=== PATIENT | female | born 1965 | race Caucasian/White ===

== ENCOUNTER 2017-02-27 11:57 | Inpatient (IN) | payer OTHER, MEDICARE ==
[~2017-02-27] VITALS: Ht 162.6 cm; Wt 97.1 kg
[~2017-02-27 11:57] MED LIST: ABILIFY2 MG PO; ABILIFY20 MG PO; ABILIFY5 MG PO; ADULT LOW DOSE81 MG PO; ADVAIR 250/5028 PUFF IN; ADVAIR DISK28 PUFFS IN; ALPRAZOLAM0.25 MG PO; AMITRIPTYLINE 225 MG OR; AMITRIPTYLINE 225 MG PO; ASPIRIN 325MG325 MG PO; ASPIRIN EC325 M1 PO; ASPIRIN EC325 MG PO; ASPIRIN325 M1 PO; AUGMENTIN1 TA2 PO; AVPAK AZITHROM250 MG PO; AZITHROMYCIN250 M1 PO; BACTRIM DS 8001 TAB PO; BIAXIN 500MG T500 MG PO; BUSPAR 10MG TAB10 MG PO; BUSPIRONE HCL15 MG PO; CARDIZEM CD120 MG PO; CARDIZEM SR120 MG PO; CEFDINIR 300MG300 MG PO; CENTRUM1 TA1 PO; CENTRUM1 TAB PO; CIPRO500 MG PO; CLINDAMYCIN150 MG PO; CLINDAMYCIN300 MG PO; CLOTRIMAZOLE 1%15 GM TP; DIAZEPAM10 MG PO; DIAZEPAM5 M1 PO; DILTIAZEM ER120 MG PO; DILTIAZEM120 MG PO; DOXEPIN PO; DOXYCYCLINE100 M1 PO; DUONEB 3 MG/3 ML3 ML IH; EFFEXOR XR150 MG PO; EFFEXOR XR75 MG PO; FLUCONAZOLE200 MG PO; GABAPENTIN 600600 MG PO; HUMALOG KW100 UNIT/1 SQ; HUMALOG100 U/M1 SC; HYCODAN 1.5 MG-1 TAB PO; HYCODAN 5MG. TAB5 MG PO; HYDROCODONE BI473 ML PO; HYDROCODONE PO; HYDROCODONE1 TABLE1 PO; INDERAL 20MG. T20 MG PO; INDERAL OR; INSULIN GL100 UNITS/ SC; INSULIN HUMA100 U/ML SC; IPRATROPIUM BROM3 M1 IH; KEFLEX 500MG.500 MG PO; LANTUS INS100 UNITS/ SC; LASIX40 MG PO; LEVAQUIN500 MG PO; LEVOFLOXACIN 5500 MG PO; LIDODERM 5% PA1 EACH TD; LOMOTIL 2.5MG.2.5 MG PO; LORTAB 5/500 501 TAB PO; LORTAB 500 MG-71 TAB PO; LYRICA 100 MG100 MG PO; MACROBID 100MG100 MG PO; MECLIZINE 25MG25 MG PO; MEDROL 4MG. DOSE4 MG PO; METFORMIN500 MG PO; METOCLOPRAMIDE H5 MG PO; METOCLOPRAMIDE5 MG PO; MIRTAZAPINE30 MG PO; MOBIC7.5 MG PO; NAPROSYN 500MG500 MG PO; NASONEX0.05 MG/AC NS; NEURONTIN600 MG PO; NEURONTIN800 MG PO; NORCO 325 MG-101 TAB PO; NOVOLOG100 U/ML SC; NYSTATIN 1100000 UNI PO; NYSTATIN SUSP; NYSTATIN TO15 GM/BOT EX; NYSTATIN100000 U/M PO; Novolog100 U/ML SC; OMNICEF 300 MG300 MG PO; PERCOCET 325 MG1 TA4 PO; PHENERGAN 25MG.25 M1 PO; POTASSIUM CHLO20 ME2 PO; PRAVASTATIN 20M20 MG PO; PREDNICOT20 MG PO; PREDNISONE 10MG10 MG PO; PREDNISONE 20MG20 MG PO; PREDNISONE20 MG PO; PRILOSEC40 MG PO; PROPRANOLOL HCL20 MG PO; PROVENTIL0.09 MG/A1 IH; PYRIDIUM 200MG200 MG PO; RESTORIL15 MG PO; SALMETEROL-F28 PUFF1 IN; SAVELLA100 MG PO; SEPTRA DS 800 M1 TAB PO; SEROQUEL XR400 MG; SEROQUEL XR400 MG PO; SIMVASTATIN10 MG PO; SKELAXIN 800MG800 MG PO; SKELAXIN800 MG PO; SPIRIVA HA1 PUFF/INH IH; SYMBICORT1 AE1 IH; TEMAZEPAM30 MG PO; TESSALON PERLE100 MG PO; TRAZODONE100 MG PO; TRICOR160 MG PO; Triglide160 MG PO; ULTRACET 325 MG1 TAB PO; VALIUM10 MG PO; VALIUM5 MG OR; VALIUM5 MG PO; VIBRA-TABS100 MG PO; VIBRAMYCIN HYC100 MG PO; VICODIN 5/500 T1 TAB PO; VICODIN 7.5/501 EACH PO; VISTARIL25 MG PO; VISTARIL50 MG PO; ZANAFLEX4 MG PO; ZITHROMAX Z PA250 MG PO; ZITHROMAX Z-PA250 M1 PO; ZOFRAN ODT8 MG PO
--- OUTSIDE RECORDS SUMMARY | 2017-02-27 12:03 | External Medical Summary Rpt ---
Author Author , Organization [employer] Address Unknown Phone Unavailable Care Team Providers Care Embosser Apprentice Name Role Phone [facility] Unavailable Unavailable [facility], [facility] Sanjeev Alonso MD, Unavailable Unavailable Sanjeev Alonso MD Purpose Continuity of Care Document - 11-28-2012 through 2016 Problems Code Diagnosis DOS Provider Status [id number] Headache [facility] [id number] Diabetes [place] mellitus [facility] type 2 [facility] 482.9 Bacterial [place] pneumonia [facility] 496 Acute [facility] chronic obstructive airways disease 518.89 Chronic [place] lung [facility] Allergies, Adverse Reactions, Alerts Type Drug Allergy Propensity to adverse reactions to drug Adverse Reaction to Substance Substance Reaction Severity Meperidine NA-HALLUCINATIONS Unknown Butorphanol NA-HALLUCINATIONS Unknown Lisinopril Unknown Mild Nicotine I-RASH Intermediate Clopidogrel I-HIVES Intermediate Ibuprofen NA-NAUSEA/VOMITING Unknown Medications Na ND Rx Da Fi Fi Am Da Di Ph RX Ph St me C No te ll ll ou ys ag ar # ys at rm s nt no ma ic us Or Da si cy ia de te s n re d IP 00 10 0 No RA 48 -2 T- 70 1- Lo AL 20 20 ng BU 10 13 er T 1 0. Ac 5- ti 3( ve 2. 5) MG /3 ML VA 00 10 0 No ED 05 -2 NI 40 1- Lo SO 01 20 ng NE 82 13 er 0 20 Ac ti MG ve TA BL ET TU 61 10 0 No SS 57 -2 IG 00 1- Lo ON 08 20 ng 10 13 er 5- 1 1. Ac 5 ti MG ve TA BL ET BE 57 10 0 No NZ 66 -2 ON 40 1- Lo AT 13 20 ng AT 38 13 er E 8 10 Ac 0 ti MG ve CA PS UL E Sa 63 10 0 No li 80 -0 ne 70 4- Lo 10 20 ng Fl 07 13 er us 5 h Ac 10 ti ML ve Sy ri ng e KE 00 10 0 No TO 40 -0 RO 93 4- Lo LA 79 20 ng C 50 13 er 30 1 Ac MG ti /M ve L AL CE 00 10 0 No FT 40 -0 RI 97 4- Lo AX 33 20 ng ON 30 13 er E 4 1 Ac GM ti ve AL SO 00 10 0 No DI 40 -0 UM 97 4- Lo 10 20 ng CH 16 13 er LO 6 RI Ac DE ti ve 0. 9% SO LN Sa 63 10 0 No li 80 -0 ne 70 4- Lo 10 20 ng Fl 07 13 er us 5 h Ac 10 ti ML ve Sy ri ng e HY [address] 07 -2 OC 90 3- Lo OD 78 20 ng ON 09 13 er E/ 9H AP Ac AP ti ve 5/ 50 0M G TA KE HY [address] 07 -2 OC 90 3- Lo OD 78 20 ng ON 09 13 er E/ 9H AP Ac AP ti ve 5/ 50 0M G TA KE HY [address] 40 -2 OC 60 1- Lo OD 36 20 ng ON 56 13 er -A 2 CE Ac TA ti MD ve NO PH EN 5- 32 5 IP 00 02 0 No RA 48 -2 T- 70 0- Lo AL 20 20 ng BU 10 13 er T 1 0. Ac 5- ti 3( ve 2. 5) MG /3 ML ME 49 02 0 No CL 88 -2 IZ 40 0- Lo IN 03 20 ng E 50 13 er 25 1 Ac MG ti ve TA BL ET AZ 59 02 1 No IT 76 -1 HR 23 5- Lo OM 06 20 ng YC 00 13 er IN 3 Ac 25 ti 0 ve MG TA BL ET IP 00 02 1 No RA 48 -1 T- 70 5- Lo AL 20 20 ng BU 10 13 er T 1 0. Ac 5- ti 3( ve 2. 5) MG /3 ML Me 51 02 2 No to 07 -1 cl 90 4- Lo op 28 20 ng ra 32 13 er mi 0 de Ac ti 10 ve MG Ta bl et Ga 68 02 2 No ba 08 -1 pe 40 4- Lo nt 59 20 ng in 56 13 er 5 40 Ac 0M ti G ve Ca ps ul e Me 00 02 2 No th 00 -1 yl 90 4- Lo pr 19 20 ng ed 00 13 er ni 9 so Ac lo ti ne ve So d [place] cc in a AM 51 02 2 No IT 07 -1 RI 90 4- Lo PT 13 20 ng YL 32 13 er IN 0 E Ac HC ti L ve 50 MG TA B AZ 00 02 1 No IT 40 -1 HR 90 3- Lo OM 14 20 ng YC 41 13 er IN 1 Ac I. ti V. ve 50 0 MG AL SO 00 02 1 No DI 40 -1 UM 97 3- Lo 10 20 ng CH 10 13 er LO 2 RI Ac DE ti ve 0. 9% SO LN CE 00 02 3 No FT 40 -1 RI 97 3- Lo AX 33 20 ng ON 30 13 er E 4 1 Ac GM ti ve AL So 00 02 3 No d 07 -1 Ch 47 3- Lo lo 10 20 ng ri 11 13 er de 3 Ac 0. ti 9% ve 50 ML Ad v IP 00 02 3 No RA 48 -1 T- 70 3- Lo AL 20 20 ng BU 10 13 er T 1 0. Ac 5- ti 3( ve 2. 5) MG /3 ML 00 02 3 No AI 12 -1 FE 10 3- Lo NE 63 20 ng SI 81 13 er N 0 DM Ac ti SY ve RU P DI 51 02 3 No AZ 07 -1 EP 90 3- Lo AM 28 20 ng 62 13 er 10 0 Ac MG ti ve TA BL ET MA 00 02 3 No PA 90 -1 P 41 3- Lo 32 98 20 ng 5 26 13 er MG 1 Ac TA ti BL ve ET As 51 02 3 No pi 07 -1 ri 90 3- Lo n 00 20 ng 32 52 13 er 5M 0 G Ac Ta ti bl ve et LO 00 02 3 No VE 07 -1 NO 50 3- Lo X 62 20 ng 40 04 13 er 1 MG Ac /0 ti .4 ve ML SY RI NG E SK 60 02 3 No EL 79 -1 AX 30 3- Lo IN 13 20 ng 60 13 er 80 1 0 Ac MG ti ve TA BL ET AD 00 02 3 No VA 17 -1 IR 30 3- Lo 69 20 ng 50 70 13 er 0- 4 50 Ac ti DI ve SK US EF 00 02 3 No FE 00 -1 XO 80 3- Lo R 83 20 ng XR 30 13 er 3 75 Ac ti MG ve CA PS UL E Di 62 02 3 No lt 58 -1 ia 40 3- Lo ze 97 20 ng m 40 13 er ER 1 Ac 12 ti 0M ve G Ca ps ul e HY [address] 40 -1 OC 60 3- Lo OD 36 20 ng ON 56 13 er -A 2 CE Ac TA ti MD ve NO PH EN 5- 32 5 Me 00 02 1 No th 00 -1 yl 90 3- Lo pr 19 20 ng ed 00 13 er ni 9 so Ac lo ti ne ve So d [place] cc in a Sa 63 02 3 No li 80 -1 ne 70 3- Lo 10 20 ng Fl 07 13 er us 5 h Ac 10 ti ML ve Sy ri ng e FS 02 3 No -1 BL 3- Lo OO 20 ng D 13 er [place] GA Ac R ti ve HU 00 02 3 No MA 00 -1 LO 27 3- Lo G 51 20 ng 10 01 13 er 0 7 UN Ac IT ti S/ ve ML AL In 00 02 3 No e[place] 08 -1 li 82 3- Lo n 22 20 ng Gl 06 13 er ar 0 gi Ac ne ti ve 10 0 Un it s/ Ml Qu 00 02 3 No et 31 -1 ia 00 3- Lo pi 27 20 ng ne 13 13 er 9 10 Ac 0M ti G ve Ta bl et TE 51 02 3 No MA 07 -1 ZE 90 3- Lo PA 41 20 ng M 92 13 er 30 0 Ac MG ti ve CA PS UL E VA 51 02 3 No AV 07 -1 90 3- Lo TA 45 20 ng TI 82 13 er N 0 SO Ac DI ti UM ve 20 MG TA B AM 51 02 1 No IT 07 -1 RI 90 3- Lo PT 10 20 ng YL 72 13 er IN 0 E Ac HC ti L ve 25 MG TA B Vital Signs 08-05-2013 16:28 Name Value Interpretat Reference Comment ion Range BP 95 mm[Hg] Diastolic BP Systolic 204 mm[Hg] Heart 127 /min Rate/Pulse O2% 97 % Respiratory 20 /min Rate 08-05-2013 16:22 Name Value Interpretat Reference Comment ion Range Body 97.9 [degF] Temperature 08-05-2013 14:03 Name Value Interpretat Reference Comment ion Range BP 64 mm[Hg] Diastolic BP Systolic 108 mm[Hg] Heart 131 /min Rate/Pulse O2% 96 % Respiratory 20 /min Rate 07-19-2013 21:59 Name Value Interpretat Reference Comment ion Range Body 98.6 [degF] Temperature BP 72 mm[Hg] Diastolic BP Systolic 155 mm[Hg] Heart 132 /min Rate/Pulse O2% 95 % Respiratory 18 /min Rate 07-19-2013 21:39 Name Value Interpretat Reference Comment ion Range Body 98.6 [degF] Temperature 07-19-2013 21:16 Name Value Interpretat Reference Comment ion Range BP 85 mm[Hg] Diastolic BP Systolic 176 mm[Hg] Heart 135 /min Rate/Pulse O2% 98 % Respiratory 22 /min Rate 12-09-2012 00:59 Name Value Interpretat Reference Comment ion Range BP 72 mm[Hg] Diastolic BP Systolic 150 mm[Hg] Heart 102 /min Rate/Pulse O2% 91 % Respiratory 20 /min Rate 12-08-2012 03:18 Name Value Interpretat Reference Comment ion Range BP 88 mm[Hg] Diastolic BP Systolic 159 mm[Hg] Heart 105 /min Rate/Pulse O2% 92 % Respiratory 20 /min Rate 12-08-2012 01:14 Name Value Interpretat Reference Comment ion Range BP 78 mm[Hg] Diastolic BP Systolic 131 mm[Hg] Heart 112 /min Rate/Pulse O2% 95 % Respiratory 20 /min Rate 12-07-2012 00:31 Name Value Interpretat Reference Comment ion Range BP 85 mm[Hg] Diastolic BP Systolic 145 mm[Hg] Heart 118 /min Rate/Pulse O2% 94 % Respiratory 20 /min Rate 12-05-2012 15:48 Name Value Interpretat Reference Comment ion Range Body 98.3 [degF] Temperature BP 65 mm[Hg] Diastolic BP Systolic 135 mm[Hg] Heart 99 /min Rate/Pulse O2% 98 % Respiratory 20 /min Rate 12-05-2012 15:08 Name Value Interpretat Reference Comment ion Range BP 78 mm[Hg] Diastolic BP Systolic 132 mm[Hg] Heart 111 /min Rate/Pulse Respiratory 24 /min Rate 12-05-2012 14:03 Name Value Interpretat Reference Comment ion Range O2% 91 % 12-01-2012 08:48 Name Value Interpretat Reference Comment ion Range Body 98.0 [degF] Temperature BP 75 mm[Hg] Diastolic BP Systolic 137 mm[Hg] Heart 110 /min Rate/Pulse Respiratory 20 /min Rate 12-01-2012 08:00 Name Value Interpretat Reference Comment ion Range O2% 90 % 11-28-2012 14:33 Name Value Interpretat Reference Comment ion Range O2% 90 % 11-28-2012 09:00 Name Value Interpretat Reference Comment ion Range Body 97.8 [degF] Temperature BP 82 mm[Hg] Diastolic BP Systolic 125 mm[Hg] Heart 122 /min Rate/Pulse Height 160.02 cm Respiratory 24 /min Rate Weight 201 [lb_av] Measured Weight 91.173 kg Measured Results Labs Lab Lab Date Result Refere Interp Status Commen Order Detail nces retati t Range on BASIC METABOLIC PANEL (08-05-2013 14:25) Glucose 167 74-106 complet 013 mg/dL ed Bld-mCn 14:25 c BUN 14 7-18 complet Bld-mCn 013 mg/dL ed c 14:25 Creat 0.7 0.6-1.0 complet SerPl-m 013 mg/dL ed Cnc 14:25 GFR 90 59- complet (ESTIMA 013 ML/MIN ed LEONIDES) 14:25 Sodium 139 136-145 complet SerPl-s 013 mmoL/L ed Cnc 14:25 Potassi 4.4 3.5-5.1 complet um 013 mmoL/L ed SerPl-s 14:25 Cnc Chlorid 100 98-107 complet e 013 mmoL/L ed SerPl-s 14:25 Cnc CO2 25 21.0-32 complet SerPl-s 013 mmoL/L .0 ed Cnc 14:25 Calcium 9.0 8.5-10. complet 013 mg/dL 1 ed SerPl-m 14:25 Cnc CBC with AUTO DIFF (08-05-2013 14:25) WBC # 08-05-2 13.8 4.8-10. complet Bld 013 K/MM3 8 ed Auto 14:25 RBC # 08-05- 5.54 4.2-5.4 complet Bld 013 M/mm3 ed Auto 14:25 Hgb 16.3 12.2-16 complet Bld-mCn 013 g/dL .2 ed c 14:25 Hct Fr 49.9 % 37.0-47 complet Bld 013 .0 ed 14:25 MCV RBC 90.2 fl 82.2-97 complet 013 .8 ed 14:25 MCH RBC 29.4 pg 27-31.2 complet Qn 013 ed Auto 14:25 MEAN 10-21-2 32.6 31.8-35 complet CORPUSC 013 g/dl .4 ed ULAR 14:25 HGB CONC RDW RBC 10-21-2 15.0 % 11.5-17 complet Auto 013 .5 ed 14:25 Platele 10-21-2 435 142-424 complet t Bld 013 K/mm3 ed Ql 14:25 Manual MEAN 10-21-2 7.2 fl 7.4-10. complet PLATELE 013 4 ed T 14:25 VOLUME Granulo 10-21-2 53.7 % 37.0-80 complet cytes 013 .0 ed Fr Bld 14:25 Auto LYMPH % 10-21-2 37.0 % 10-50.0 complet 013 ed 14:25 Monocyt 10-21-2 5.8 % 1.7-9.3 complet es Fr 013 ed Bld 14:25 Auto Eosinop 10-21-2 2.9 % 0.1-12. complet hil Fr 013 0 ed Bld 14:25 Auto Basophi 10-21-2 0.6 % 0.1-2.0 complet ls Fr 013 ed Bld 14:25 Auto Granulo 10-21-2 7.4 1.8-7.8 complet cytes # 013 K/mm3 ed Bld 14:25 Auto Lymphoc 10-21-2 5.1 0.7-4.5 complet ytes Fr 013 K/mm3 ed Bld 14:25 Auto Monocyt 10-21-2 0.8 0.1-1.0 complet es # 013 K/mm3 ed Bld 14:25 Auto Eosinop 10-21-2 0.4 0.0-0.4 complet hil # 013 K/mm3 ed Bld 14:25 Auto Basophi 10-21-2 0.1 0-0.2 complet ls # 013 K/MM3 ed Bld 14:25 Auto COMPREHENSIVE METABOLIC PANEL (07-19-2013 21:00) Glucose 04-2 213 74-106 complet 013 mg/dL ed Bld-mCn 21:00 c BUN 10-04-2 11 7-18 complet Bld-mCn 013 mg/dL ed c 21:00 Creat 10-04-2 0.8 0.6-1.0 complet SerPl-m 013 mg/dL ed Cnc 21:00 ESTIMAT 130 50-200 complet ED 013 ML/MIN ed CREATIN 21:00 INE CLEARAN CE GFR 77 59- complet (ESTIMA 013 ML/MIN ed LEONIDES) 21:00 Sodium 138 136-145 complet SerPl-s 013 mmoL/L ed Cnc 21:00 Potassi 3.9 3.5-5.1 complet um 013 mmoL/L ed SerPl-s 21:00 Cnc Chlorid 98 98-107 complet e 013 mmoL/L ed SerPl-s 21:00 Cnc CO2 29 21.0-32 complet SerPl-s 013 mmoL/L .0 ed Cnc 21:00 Calcium 8.7 8.5-10. complet 013 mg/dL 1 ed SerPl-m 21:00 Cnc Prot 8.5 6.4-8.2 complet SerPl-m 013 gm/dL ed Cnc 21:00 Albumin 3.6 3.4-5.0 complet 013 gm/dL ed SerPl-m 21:00 Cnc Globuli 4.9 1.3-3.2 complet n 013 gm/dL ed Ser-mCn 21:00 c Albumin 0.7 UNK 1.1-1.8 complet /Glob 013 ed SerPl-m 21:00 Rto Bilirub 0.2 0.2-1.0 complet 013 mg/dL ed SerPl-m 21:00 Cnc AST 52 U/L 15-37 complet SerPl-c 013 ed Cnc 21:00 ALT 60 U/L 30-65 complet SerPl-c 013 ed Cnc 21:00 ALP 167 U/L 50-136 complet SerPl-c 013 ed Cnc 21:00 D Dimer PPP (07-19-2013 21:00) D Dimer 07-19- 194 0-400 complet PPP 013 ng/mL ed 21:00 CBC with AUTO DIFF (07-19-2013 21:00) WBC # 07-19-2 15.6 4.8-10. complet Bld 013 K/MM3 8 ed Auto 21:00 RBC # 10-04-2 5.36 4.2-5.4 complet Bld 013 M/mm3 ed Auto 21:00 Hgb 07-19-2 16.2 12.2-16 complet Bld-mCn 013 g/dL .2 ed c 21:00 Hct Fr 07-19- 46.9 % 37.0-47 complet Bld 013 .0 ed 21:00 MCV RBC 87.6 fl 82.2-97 complet 013 .8 ed 21:00 MCH RBC 30.3 pg 27-31.2 complet Qn 013 ed Auto 21:00 MEAN 34.6 31.8-35 complet CORPUSC 013 g/dl .4 ed ULAR 21:00 HGB CONC RDW RBC 15.4 % 11.5-17 complet Auto 013 .5 ed 21:00 Platele 07-19-2 359 142-424 complet t Bld 013 K/mm3 ed Ql 21:00 Manual MEAN 7.1 fl 7.4-10. complet PLATELE 013 4 ed T 21:00 VOLUME Granulo 07-19-2 72.9 % 37.0-80 complet cytes 013 .0 ed Fr Bld 21:00 Auto LYMPH % 07-19-2 19.6 % 10-50.0 complet 013 ed 21:00 Monocyt 04-2 5.2 % 1.7-9.3 complet es Fr 013 ed Bld 21:00 Auto Eosinop --2 1.9 % 0.1-12. complet hil Fr 013 0 ed Bld 21:00 Auto Basophi --2 0.4 % 0.1-2.0 complet ls Fr 013 ed Bld 21:00 Auto Granulo 10-04-2 11.4 1.8-7.8 complet cytes # 013 K/mm3 ed Bld 21:00 Auto Lymphoc 10-04-2 3.1 0.7-4.5 complet ytes Fr 013 K/mm3 ed Bld 21:00 Auto Monocyt 10-04-2 0.8 0.1-1.0 complet es # 013 K/mm3 ed Bld 21:00 Auto Eosinop -04-2 0.3 0.0-0.4 complet hil # 013 K/mm3 ed Bld 21:00 Auto Basophi 0.1 0-0.2 complet ls # 013 K/MM3 ed Bld 21:00 Auto GLYCOHEMOGLOBIN (A1c) (07-19-2013 21:00) HEMOGLO 9.8 % 0.0-7.0 complet BIN A1C 013 ed 21:00 ARTERIAL BLOOD GAS (12-05-2012 15:15) ARTERIA 7.43 7.35-7. complet L PH 013 MMOL/L 45 ed 15:15 ARTERIA 44.5 35.0-45 complet L PCO2 013 MMHG .0 ed 15:15 ARTERIA 72.0 80-100 complet L PO2 013 MMHG ed 15:15 ARTERIA 29.1 22.0-26 complet L HCO3 013 MMOL/L .0 ed 15:15 ARTERIA 30.4 23-27 complet L TCO2 013 MMOL/L ed 15:15 Base 4.8 -2.4-+2 complet excess 013 MMOL/L .3 ed BldA-sC 15:15 nc ARTERIA 95.2 % 90-100 complet L O2 013 ed SAT 15:15 OXYGEN ROOM complet 013 AIR ed 15:15 Arteria ACCEPTA complet l 013 BLE ed patency 15:15 Wrist a SOURCE RIGHT complet 013 BRACHIA ed 15:15 L COMPREHENSIVE METABOLIC PANEL (12-05-2012 14:00) Glucose 233 74-106 complet 013 mg/dL ed Bld-mCn 14:00 c BUN 14 7-18 complet Bld-mCn 013 mg/dL ed c 14:00 Creat 0.9 0.6-1.0 complet SerPl-m 013 mg/dL ed Cnc 14:00 GFR/BSA 68 59- complet .pred 013 ML/MIN ed SerPl 14:00 Schwart z-vRate Sodium 135 136-145 complet SerPl-s 013 mmoL/L ed Cnc 14:00 Potassi 4.2 3.5-5.1 complet um 013 mmoL/L ed SerPl-s 14:00 Cnc Chlorid 12-05- 96 98-107 complet e 013 mmoL/L ed SerPl-s 14:00 Cnc CO2 12-05- 27 21.0-32 complet SerPl-s 013 mmoL/L .0 ed Cnc 14:00 Calcium 8.6 8.5-10. complet 013 mg/dL 1 ed SerPl-m 14:00 Cnc Prot 7.5 6.4-8.2 complet SerPl-m 013 gm/dL ed Cnc 14:00 Albumin 12-05- 3.1 3.4-5.0 complet 013 gm/dL ed SerPl-m 14:00 Cnc Globuli 4.4 1.3-3.2 complet n 013 gm/dL ed Ser-mCn 14:00 c Albumin 0.7 UNK 1.1-1.8 complet /Glob 013 ed SerPl-m 14:00 Rto Bilirub 0.2 0.2-1.0 complet 013 mg/dL ed SerPl-m 14:00 Cnc AST 32 U/L 15-37 complet SerPl-c 013 ed Cnc 14:00 ALT 12-05- 66 U/L 30-65 complet SerPl-c 013 ed Cnc 14:00 ALP 12-05- 156 U/L 50-136 complet SerPl-c 013 ed Cnc 14:00 BNP Bld-mCnc (12-05-2012 14:00) BNP 9 pg/mL 0-100 complet Bld-mCn 013 ed c 14:00 CBC with AUTO DIFF (12-05-2012 14:00) WBC # 20-2 10.5 4.8-10. complet Bld 013 K/MM3 8 ed Auto 14:00 RBC # 12-05-2 5.12 4.2-5.4 complet Bld 013 M/mm3 ed Auto 14:00 Hgb 12-05- 15.1 12.2-16 complet Bld-mCn 013 g/dL .2 ed c 14:00 Hct Fr 46.6 % 37.0-47 complet Bld 013 .0 ed 14:00 MCV RBC 02-20-2 91.2 fl 82.2-97 complet 013 .8 ed 14:00 MCH RBC 20-2 29.6 pg 27-31.2 complet Qn 013 ed Auto 14:00 MEAN 0220-2 32.4 31.8-35 complet CORPUSC 013 g/dl .4 ed ULAR 14:00 HGB CONC RDW RBC 20-2 16.0 % 11.5-17 complet Auto 013 .5 ed 14:00 Platele -20-2 352 142-424 complet t Bld 013 K/mm3 ed Ql 14:00 Manual MEAN 2 6.8 fl 7.4-10. complet PLATELE 013 4 ed T 14:00 VOLUME Granulo -20-2 62.2 % 37.0-80 complet cytes 013 .0 ed Fr Bld 14:00 Auto LYMPH % -20-2 30.5 % 10-50.0 complet 013 ed 14:00 Monocyt 02-20-2 5.3 % 1.7-9.3 complet es Fr 013 ed Bld 14:00 Auto Eosinop 02-20-2 1.7 % 0.1-12. complet hil Fr 013 0 ed Bld 14:00 Auto Basophi 02-20-2 0.3 % 0.1-2.0 complet ls Fr 013 ed Bld 14:00 Auto Granulo 02-20-2 6.5 1.8-7.8 complet cytes # 013 K/mm3 ed Bld 14:00 Auto Lymphoc 02-20-2 3.2 0.7-4.5 complet ytes Fr 013 K/mm3 ed Bld 14:00 Auto Monocyt 02-20-2 0.6 0.1-1.0 complet es # 013 K/mm3 ed Bld 14:00 Auto Eosinop 02-20-2 0.2 0.0-0.4 complet hil # 013 K/mm3 ed Bld 14:00 Auto Basophi 02-20-2 0.0 0-0.2 complet ls # 013 K/MM3 ed Bld 14:00 Auto Glucose BldC Glucomtr-nc (12-05-2012 13:48) Glucose 02-20-2 252 70-110 complet BldC 013 mg/dl ed Glucomt 13:48 r-mCnc Glucose BldC Glucomtr-mCnc (12-01-2012 06:26) Glucose 325 70-110 High complet BldC 013 mg/dl alert ed Glucomt 06:26 r-nc Glucose BldC Glucomtr-nc (11-30-2012 21:30) Glucose 2 382 70-110 High complet BldC 013 mg/dl alert ed Glucomt 21:30 r-nc Glucose BldC Glucomtr-nc (11-30-2012 16:46) Glucose 2 247 70-110 complet BldC 013 mg/dl ed Glucomt 16:46 r-[facility] Glucose BldC Glucomtr-nc (11-30-2012 11:48) Glucose 11-30-2 281 70-110 complet BldC 013 mg/dl ed Glucomt 11:48 r-[facility] Glucose BldC Glucomtr-nc (11-30-2012 06:20) Glucose 2 415 70-110 High complet BldC 013 mg/dl alert ed Glucomt 06:20 r-[facility] BASIC METABOLIC PANEL (11-30-2012 04:44) Glucose 441 74-106 complet 013 mg/dL ed Bld-mCn 04:44 c BUN 16 7-18 complet Bld-mCn 013 mg/dL ed c 04:44 Creat 1.1 0.6-1.0 complet SerPl-m 013 mg/dL ed Cnc 04:44 ESTIMAT 93 50-200 complet ED 013 ML/MIN ed CREATIN 04:44 INE CLEARAN CE GFR 54 59- complet (ESTIMA 013 ML/MIN ed LEONIDES) 04:44 Sodium 134 136-145 complet SerPl-s 013 mmoL/L ed Cnc 04:44 Potassi 4.6 3.5-5.1 complet um 013 mmoL/L ed SerPl-s 04:44 Cnc Chlorid 97 98-107 complet e 013 mmoL/L ed SerPl-s 04:44 Cnc CO2 29 21.0-32 complet SerPl-s 013 mmoL/L .0 ed Cnc 04:44 Calcium 02-15-2 9.0 8.5-10. complet 013 mg/dL 1 ed SerPl-m 04:44 Cnc CBC with AUTO DIFF (11-30-2012 04:44) WBC # 02-15-2 19.5 4.8-10. complet Bld 013 K/MM3 8 ed Auto 04:44 RBC # 02-15-2 4.84 4.2-5.4 complet Bld 013 M/mm3 ed Auto 04:44 Hgb 02-15-2 14.2 12.2-16 complet Bld-mCn 013 g/dL .2 ed c 04:44 Hct Fr -15-2 44.4 % 37.0-47 complet Bld 013 .0 ed 04:44 MCV RBC 02-15-2 91.7 fl 82.2-97 complet 013 .8 ed 04:44 MCH RBC -15-2 29.4 pg 27-31.2 complet Qn 013 ed Auto 04:44 MEAN 02-15-2 32.0 31.8-35 complet CORPUSC 013 g/dl .4 ed ULAR 04:44 HGB CONC RDW RBC -15-2 16.0 % 11.5-17 complet Auto 013 .5 ed 04:44 Platele -15-2 338 142-424 complet t Bld 013 K/mm3 ed Ql 04:44 Manual MEAN 15-2 7.2 fl 7.4-10. complet PLATELE 013 4 ed T 04:44 VOLUME Granulo -15-2 91.4 % 37.0-80 complet cytes 013 .0 ed Fr Bld 04:44 Auto LYMPH % 02-15-2 5.2 % 10-50.0 complet 013 ed 04:44 Monocyt 02-15-2 3.1 % 1.7-9.3 complet es Fr 013 ed Bld 04:44 Auto Eosinop 02-15-2 0.4 % 0.1-12. complet hil Fr 013 0 ed Bld 04:44 Auto Basophi 02-15-2 0.1 % 0.1-2.0 complet ls Fr 013 ed Bld 04:44 Auto Granulo 02-15-2 17.8 1.8-7.8 complet cytes # 013 K/mm3 ed Bld 04:44 Auto Lymphoc 02-15-2 1.0 0.7-4.5 complet ytes Fr 013 K/mm3 ed Bld 04:44 Auto Monocyt 02-15-2 0.6 0.1-1.0 complet es # 013 K/mm3 ed Bld 04:44 Auto Eosinop 02-15-2 0.1 0.0-0.4 complet hil # 013 K/mm3 ed Bld 04:44 Auto Basophi 02-15-2 0.0 0-0.2 complet ls # 013 K/MM3 ed Bld 04:44 Auto Glucose BldC Glucomtr-mCnc (11-29-2012 21:05) Glucose 14-2 334 70-110 High complet BldC 013 mg/dl alert ed Glucomt 21:05 r-mCnc Glucose BldC Glucomtr-mCnc (11-29-2012 17:04) Glucose 11-29-2 403 70-110 High complet BldC 013 mg/dl alert ed Glucomt 17:04 r-mCnc Glucose BldC Glucomtr-mCnc (11-29-2012 11:41) Glucose 11-29-2 492 70-110 High complet BldC 013 mg/dl alert ed Glucomt 11:41 r-mCnc CBC with AUTO DIFF (11-29-2012 06:30) WBC # -14-2 15.3 4.8-10. complet Bld 013 K/MM3 8 ed Auto 06:30 RBC # 02-14-2 4.92 4.2-5.4 complet Bld 013 M/mm3 ed Auto 06:30 Hgb 11-29-2 14.3 12.2-16 complet Bld-mCn 013 g/dL .2 ed c 06:30 Hct Fr 11-29-2 45.7 % 37.0-47 complet Bld 013 .0 ed 06:30 MCV RBC 11-29-2 92.9 fl 82.2-97 complet 013 .8 ed 06:30 MCH RBC 14-2 29.2 pg 27-31.2 complet Qn 013 ed Auto 06:30 MEAN 11-29-2 31.4 31.8-35 complet CORPUSC 013 g/dl .4 ed ULAR 06:30 HGB CONC RDW RBC 14-2 16.0 % 11.5-17 complet Auto 013 .5 ed 06:30 Platele 2 337 142-424 complet t Bld 013 K/mm3 ed Ql 06:30 Manual MEAN 02-14-2 6.8 fl 7.4-10. complet PLATELE 013 4 ed T 06:30 VOLUME Granulo 02-14-2 90.5 % 37.0-80 complet cytes 013 .0 ed Fr Bld 06:30 Auto LYMPH % 02-14-2 7.4 % 10-50.0 complet 013 ed 06:30 Monocyt 02-14-2 1.8 % 1.7-9.3 complet es Fr 013 ed Bld 06:30 Auto Eosinop 02-14-2 0.2 % 0.1-12. complet hil Fr 013 0 ed Bld 06:30 Auto Basophi 02-14-2 0.0 % 0.1-2.0 complet ls Fr 013 ed Bld 06:30 Auto Granulo 02-14-2 13.8 1.8-7.8 complet cytes # 013 K/mm3 ed Bld 06:30 Auto Lymphoc 02-14-2 1.1 0.7-4.5 complet ytes Fr 013 K/mm3 ed Bld 06:30 Auto Monocyt 02-14-2 0.3 0.1-1.0 complet es # 013 K/mm3 ed Bld 06:30 Auto Eosinop 02-14-2 0.0 0.0-0.4 complet hil # 013 K/mm3 ed Bld 06:30 Auto Basophi 02-14-2 0.0 0-0.2 complet ls # 013 K/MM3 ed Bld 06:30 Auto Glucose BldC Glucomtr-nc (11-29-2012 06:30) Glucose 11-29-2 400 70-110 High complet BldC 013 mg/dl alert ed Glucomt 06:30 r-mCnc Glucose BldC Glucomtr-nc (11-28-2012 21:19) Glucose 11-28-2 380 70-110 High complet BldC 013 mg/dl alert ed Glucomt 21:19 r-mCnc Glucose BldC Glucomtr-nc (11-28-2012 16:40) Glucose 355 70-110 High complet BldC 013 mg/dl alert ed Glucomt 16:40 r-mCnc Glucose BldC Glucomtr-nc (11-28-2012 11:53) Glucose 142 70-110 complet BldC 013 mg/dl ed Glucomt 11:53 r-mCnc Glucose BldC Glucomtr-mCnc (11-28-2012 10:22) Glucose 299 70-110 complet BldC 013 mg/dl ed Glucomt 10:22 r-mCnc MYCOPLASMA IGM (RAPID) (11-28-2012 09:00) MYCOPLA NON-[place] NONREAC complet SMA IGM 013 CTIVE TIVE ed 09:00 (RAPID) ARTERIAL BLOOD GAS (11-28-2012 08:45) ARTERIA 7.37 7.35-7. complet L PH 013 MMOL/L 45 ed 08:45 ARTERIA 47.0 35.0-45 complet L PCO2 013 MMHG .0 ed 08:45 ARTERIA 89.0 80-100 complet L PO2 013 MMHG ed 08:45 ARTERIA 26.8 22.0-26 complet L HCO3 013 MMOL/L .0 ed 08:45 ARTERIA 28.2 23-27 complet L TCO2 013 MMOL/L ed 08:45 Base 1.5 -2.4-+2 complet excess 013 MMOL/L .3 ed BldA-sC 08:45 nc ARTERIA 96.8 % 90-100 complet L O2 013 ed SAT 08:45 OXYGEN 28% complet 013 NASAL ed 08:45 CANNULA [place] ACCEPTA complet l 013 BLE ed patency 08:45 Wrist a SOURCE LEFT complet 013 RADIAL ed 08:45 Encounters Encounter Start End Date Code Location Performer Type Date Emergency ALYSA Menjivar MD (ER) 3 14:10 3 16:37 [facility] Emergency ALYSA Gutierrez MD (ER) 3 20:17 3 22:00 [facility] Emergency ALYSA Loja (ER) 3 00:13 3 01:00 [facility] Emergency ALYSA Loja (ER) 3 00:50 3 03:19 [facility] Emergency ALYSA OQUENDO (ER) 3 00:10 3 00:34 [facility] Emergency ALYSA AIKEN (ER) 3 14:01 3 15:59 [facility] Inpatient ROBERT Alonso MD (IN) 3 08:34 3 08:42 [facility] [place]
--- OUTSIDE RECORDS SUMMARY | 2017-02-27 12:03 | External Medical Summary Rpt ---
Author Author , Organization [employer] Address Unknown Phone Unavailable Care Team Providers Care Correctional Officer Name Role Phone [facility] Unavailable Unavailable [facility], [facility] Sanjeev Alonso MD, Unavailable Unavailable Sanjeev Alonso MD Purpose Continuity of Care Document - 11-28-2012 through 2016 Problems Code Diagnosis DOS Provider Status [id number] Headache [facility] [id number] Diabetes [place] mellitus [facility] type 2 [facility] 482.9 Bacterial [place] pneumonia [facility] 496 Acute [facility] chronic obstructive airways disease 518.89 Chronic [place] lung [facility] Allergies, Adverse Reactions, Alerts Type Drug [...] 3( ve 2. 5) MG /3 ML TX 00 10 0 No ED 05 -2 [...] er -A 2 CE Ac TA ti NH ve NO PH EN 5- 32 5 [...] er -A 2 CE Ac TA ti NH ve NO PH EN 5- 32 5 [...] MG ti ve CA PS UL E TX 51 02 3 No AV 07 -1 [...] complet BldC 013 mg/dl ed Glucomt 16:46 r-[facility] Glucose BldC Glucomtr-nc (11-30-2012 11:48) Glucose 11-30-2 281 70-110 complet BldC 013 mg/dl ed Glucomt 11:48 r-[facility] Glucose BldC Glucomtr-nc (11-30-2012 06:20) Glucose 2 415 70-110 High complet BldC 013 mg/dl alert ed Glucomt 06:20 r-[facility] BASIC METABOLIC PANEL (11-30-2012 04:44) Glucose 441 [...] Menjivar MD (ER) 3 14:10 3 16:37 [facility] Emergency ALYSA Gutierrez MD (ER) 3 20:17 3 22:00 [facility] Emergency ALYSA Loja (ER) 3 00:13 3 01:00 [facility] Emergency ALYSA Loja (ER) 3 00:50 3 03:19 [facility] Emergency ALYSA OQUENDO (ER) 3 00:10 3 00:34 [facility] Emergency ALYSA AIKEN (ER) 3 14:01 3 15:59 [facility] Inpatient ROBERT Alonso MD (IN) 3 08:34 3 08:42 [facility]
--- OUTSIDE RECORDS SUMMARY | 2017-02-27 12:05 | External Medical Summary Rpt ---
Author Author [facility] Pugh, [employer] Organization [employer] Address Unknown Phone Unavailable
--- OUTSIDE RECORDS SUMMARY | 2017-02-27 12:05 | External Medical Summary Rpt ---
Author Author [employer] Organization [employer] Address Unknown Phone Unavailable Purpose Continuity of Care Document - through 2016
--- OUTSIDE RECORDS SUMMARY | 2017-02-27 12:05 | External Medical Summary Rpt ---
Demographics Preferred Language Taiwanese Marital Status Unknown Judaism Affiliation Unknown Race Unknown Ethnic Group Unknown Author Author , Organization [employer] Address Unknown Phone Unavailable Purpose Continuity of Care Document - through 2016 Immunization No patient found.
--- OUTSIDE RECORDS SUMMARY | 2017-02-27 12:05 | External Medical Summary Rpt ---
Demographics Preferred Language [place] Citizen Marital Status Unknown Restorationist Affiliation Unknown Race Unknown Ethnic Group Unknown Author Author , Organization [employer] Address Unknown Phone Unavailable Purpose Continuity of Care Document - through 2016 Immunization No patient found.
[2017-02-27 12:52] VITALS: BP 140/79
[2017-02-27 13:09] VITALS: BP 145/70
[2017-02-27 13:09] LABS: LYMPH # 5.6 K/mm3 (0.7-4.5); LYMPH % 28.9 % (10-50.0)
[2017-02-27 13:11] LABS: BUN 9 mg/dL (7-18)
[2017-02-27 13:13] LABS: GFR (ESTIMATED) 89 ML/MIN (59-)
[2017-02-27] MEDS ORDERED: LEVEMIR100 U/ML SC (13:14)
[2017-02-27] MEDS ORDERED: TRAZODONE50 MG PO (13:15)
[2017-02-27] MEDS ORDERED: DOXYCYCLINE HY100 MG PO (13:16)
[2017-02-27] MEDS ORDERED: FUROSEMIDE 20MG20 MG PO (13:16)
--- NOTE | 2017-02-27 13:36 | HISTORY AND PHYSICAL REPORT ---
Demographics: Admit date: 02/27/17 Chief complaint: Cough and shortness of air PRIMARY DIAGNOSIS: PNEUMONIA Allergies: Coded Allergies: morphine (Severe, NA-HALLUCINATIONS 09/14/15) clopidogrel (From Plavix) (Mild, I-HIVES 09/14/15) ibuprofen (Mild, 09/14/15) lisinopril (Mild, 09/14/15) nicotine (Mild, 09/14/15) butorphanol (Mild, NA-HALLUCINATIONS 09/14/15) meperidine (Mild, NA-HALLUCINATIONS 09/14/15) History of present illness: History of present illness: A 51-year-old white female with moderate COPD and continuing smoking disorder who presented to my office 4 days ago with cough and congestion, found to have rhonchi and crackles on her lung exam with mild tachycardia and was started on p.o. doxycycline with prednisone therapy, to treat her community-acquired bronchopneumonia and COPD exacerbation as an outpatient. Unfortunately, she has not improved and came back to the office today with cough, shortness of air, tachycardia, congestion and was found to have no improvement in her lung exam with tachypnea and increased work of breathing. She is admitted to the hospital for intravenous antibiotic therapy given the failure of outpatient therapy, pulmonary toilet and enhanced respiratory therapy Past medical history: Family HX Diabetes Yes CAD Yes Hypertension Yes Hyperlipidemia Yes Cancer No TB No Immunization HX DT/Tetanus 1-4 Years Ago Flu Refused Pneumonia Refuses TB Test in last year No General CAD? No Angina: Yes PA: No Hypertension? Yes Hyperlipidemia? Yes CHF? No COPD? Yes Asthma? Yes Anemia? No Hernia? No Thyroid Problems? No Hypothyroidism? No CVA? Yes Seizures? No Diabetes? Yes Insulin Dependent: Yes Insulin Pump: No Home FSBS? Yes UTI? No Stones? No GB Disease: Yes Nephritic Syndrome? No Asplenia? No Hepatitis? No Sickle Cell Disease? No Arthritis? No Cataracts? No Glaucoma? No MRSA? Yes TB? No Cancer? No Site: N Past Surgical HX Previous Surgery?Y [place] HYSTERECTOMY LUNG BIOPSY WITH THORACOT Current home meds: Active Scripts Prednisone (Prednisone 20MG) 20 MG PO BID #6 TAB Prov: 02/10/16 Reported Medications TIZANIDINE HCL (Zanaflex) 4 MG PO TID Propranolol Hcl (Inderal La 60 Mg. Capsule) 60 MG OR DAILY Buspirone Hcl 15 MG PO TID Hydroxyzine Pamoate (Vistaril) 50 MG PO QID Aripiprazole (Abilify) 10 MG PO QHS Metformin HCL (Metformin) 500 MG PO DAILY Gabapentin (Gabapentin 600MG) 800 MG PO Q8 Insulin Lispro (Humalog Kwikpen) 50 UNIT SQ WITH MEALS DILTIAZEM HCL (Diltiazem 24HR ER) 120 MG PO DAILY Insulin Detemir (Levemir 10ML VIAL) 100 UNITS SC QHS Trazodone Hcl (Trazodone HCl) 50 MG PO QHS #30 Furosemide (Furosemide) 20 MG FT DAILY #30 Doxycycline Hyclate 100 MG PO BID #20 Omeprazole (Prilosec 40mg Cap) 40 MG PO DAILY MILNACIPRAN HCL (Savella) 100 MG PO BID Simvastatin 10 MG PO QHS ASPIRIN (Aspirin) 81 MG PO DAILY Social Hx: Smoking HX Tobacco Yes Type Cigarettes Packs/day < 1 PACK Are you/the child exposed to second-hand smoke: Yes Alcohol Alcohol: No Hx of Drug Use Drug Use? No Patien't marital status is Patient's support system is good Review of systems: Constitutional malaise, weakness. No: fever. Respiratory see HPI. Cardiovascular No no symptoms reported Gastrointestinal/Abdominal nausea, poor appetite Genitourinary No: no symptoms reported. Musculoskeletal No: no symptoms reported. Neurological No: see HPI. Exam: Lab data for last 24 hours: Laboratory Tests 02/27/17 1245: Sodium 136, Potassium 4.0, Chloride 97 L, Carbon Dioxide 28, BUN 9, Creatinine 0.7, Estimated GFR (MDRD) 89, Glucose 226 H, Calcium 9.5, WBC 19.3 H, RBC 5.55 H, Hgb 16.0, Hct 48.0 H, MCV 86.5, RDW 13.4, Plt Count 492 H, MPV 5.5 L, Gran % 64.3, Gran # 12.4 H, Lymphocytes % 28.9, Monocytes % 4.6, Eosinophils % 1.7, Basophils % 0.4, Lymphocytes # 5.6 H, Monocytes # 0.9, Eosinophils # 0.3, Basophils # 0.1, PUBS MCHC 33.2, MCH 28.7 Microbiology 02/27 1245 BLOOD: Anaerobic Blood Culture - RECD 02/27 124 BLOOD: Aerobic Blood Culture - RECD 02/27 124 BLOOD: Anaerobic Blood Culture - RECD 02/27 124 BLOOD: Aerobic Blood Culture - RECD Admission vital signs: 1ST Vital Signs Result Date Time Pulse Ox 98 02/27 1252 O2 Delivery ROOM AIR 02/27 1252 B/P 140/79 02/27 1252 Temp 98.6 02/27 1252 Pulse 105 02/27 1252 Resp 22 02/27 1252 Additional information: Pleasant white female who appears older than her stated age, morbidly obese, smells heavily of tobacco smoke. Oropharynx is dry but otherwise clear of lesions. Lungs have crackles and rhonchi in both lower lung young, worse on the right. Some expiratory wheezing. Minimal use of accessory muscles. Abdomen is soft and nontender. No edema noted. Very dry extremities with evidence of solar elastosis accelerated by tobacco use. No neurologic deficits. Plan: Problem List 1. Chronic obstructive lung disease Status Acute 2. Pneumonia Status Acute 3. Acute exacerbation of chronic obstructive airways disease Status Chronic 4. Diabetes mellitus type 2 Status Chronic 5. Morbid obesity Plan: Admit to hospital given the failure of outpatient therapy. Begin ceftriaxone, azithromycin. Diabetes complicates all aspects of her care as does her morbid obesity. at 1335
[2017-02-27 13:59] LABS: NEUTROPHILS 54 % (42-76)
[2017-02-27 14:01] LABS: STOMATOCYTE 1+
[2017-02-27 16:40] VITALS: BP 157/86
--- NOTE | 2017-02-27 19:05 | RADIOLOGY REPORT PS360 ---
CHEST(2 VIEWS-NOT PORTABLE) Ordering Physician: Sanjeev Watt MD Patient Age: 51 years: Female HISTORY: R/O PNEUMONIA TECHNIQUE: PA and lateral chest COMPARISON is made to previous 02/08/2016 CXR August 2015 CXR FINDINGS . Again see linear areas of scarring and atelectasis right midlung Extending from right cherelle. Stable since 2015 There is also some minimal linear scarring and atelectasis at the left base is similar to that same 2015 CXR. I see no definitive acute infiltrate additionally today. Markings upper normal at the retrocardiac region left lower lobe but again more likely related to chronic changes with similar appearance here in 2015 Upper lung young are clear. Mediastinal structures unremarkable.T-spine intact Vascular clips/Postsurgical changes anterior aspect RML again noted IMPRESSION: ... Stable chest with chronic changes. Nothing definite acute.
[2017-02-27 19:37] VITALS: BP 157/86
[2017-02-27 20:09] VITALS: BP 166/95
[2017-02-27 21:30] VITALS: BP 157/86
[2017-02-28] VITALS (8 sets, daily range): BP systolic 116–174; BP diastolic 68–94
[2017-02-28 06:31] LABS: HEMOGLOBIN 16.7 g/dL (12.2-16.2); LYMPH # 2.9 K/mm3 (0.7-4.5); LYMPH % 16.7 % (10-50.0)
--- NOTE | 2017-02-28 07:17 | PHARMACY CLINIC NOTE ---
Patient Demographics Patient Demographics Admission date: 02/27/17 Date: 02/28/17 Time: 0716 Allergies Coded Allergies: morphine (Severe, NA-HALLUCINATIONS 09/14/15) clopidogrel (From Plavix) (Mild, I-HIVES 09/14/15) ibuprofen (Mild, 09/14/15) lisinopril (Mild, 09/14/15) nicotine (Mild, 09/14/15) butorphanol (Mild, NA-HALLUCINATIONS 09/14/15) meperidine (Mild, NA-HALLUCINATIONS 09/14/15) HEIGHT- FT: 5 IN: 4.00 K.125 VTE General Information Labs: Laboratory Tests 02/28 02/27 0605 1245 Hematology Hgb (12.2 - 16.2 g/dL) 16.7 H 16.0 Hct (37.0 - 47.0 %) 50.6 H 48.0 H Plt Count (142 - 424 K/mm3) 533 H 492 H Disclaimer The following section includes nursing documentation that has been pulled in for pharmacy review. Patient's VTE score: 3 Patient's VTE Risk: VERY LOW RISK Clinical trial participant? No VTE prophylaxis [id number] VTE prophylaxis ordered? Yes Type of prophylaxis/treatment: LEONIDES at 0716
--- NOTE | 2017-02-28 08:24 | ACUTE CARE PROGRESS NOTE (QUA) ---
Progress Notes Subjective Date 02/28/17 Time 0740 Note Patient is resting in bed. She is tolerating oral intake well. She reports some improvement of her breathing. She continues to cough; however she is unable to produce any sputum at this time. No fevers through the night. Saturations 91% on room air this morning. Alert and oriented 3. Rate and rhythm regular. No lower extremity edema. Pulses 2+. Lung sounds with scattered crackles and rhonchi on RIGHT and wheezes throughout all lung young. Abdomen soft and nontender with normoactive bowel sounds Patient/family reports: feeling better Nursing reports: no complaints Objective Findings Last VS-Temp:97.7 B/P:157/87 Pulse:130 Resp:18 SaO2:95 ROOM AIR Last weight lbs:214 oz:2 K.125 Method:Bed Scales Reviewed: allergies, medications, vital signs, lab results, radiology report Assessment/Plan Problem List 1. Chronic obstructive lung disease Status: Acute Assessment/Plan: Continue IV antibiotics and DuoNebs. Strongly advised smoking cessation. Patient patient is not motivated to do so at this time. 2. Pneumonia Status: Acute Assessment/Plan: See above. 3. Acute exacerbation of chronic obstructive airways disease Status: Chronic 4. Diabetes mellitus type 2 Status: Chronic Assessment/Plan: Continue FSBS with sliding scale coverage 5. Morbid obesity Patient condition Improving Plan: continue current care (see above) This inpt stay is expected to cross 2 MNs from start of care Yes at 0823
[2017-02-28] MEDS ORDERED: DILTIAZEM CD 2240 MG PO (09:14)
[2017-02-28] MEDS ORDERED: METFORMIN ER500 M1 PO (09:38)
[2017-02-28] MEDS ORDERED: METFORMIN HCL1000 MG PO (09:42)
[2017-02-28] MEDS ORDERED: GABAPENTIN800 MG PO (10:47)
[2017-03-01] VITALS (8 sets, daily range): BP systolic 121–153; BP diastolic 67–90
--- NOTE | 2017-03-01 07:31 | ACUTE CARE PROGRESS NOTE (QUA) ---
Progress Notes Admission Date: 02/27/17 Subjective Date 03/01/17 Time 0730 Note Overall patient continues to have a cough. No fever. Minimal sputum production. Lungs are clear, abdomen soft, no edema. Objective Findings Last VS-Temp:97.7 B/P:140/90 Pulse:99 Resp:16 SaO2:91 ROOM AIR Last weight lbs:214 oz:4 K.182 Method:Bed Scales Assessment/Plan Problem List 1. Chronic obstructive lung disease Status: Acute 2. Pneumonia Status: Acute 3. Acute exacerbation of chronic obstructive airways disease Status: Chronic 4. Diabetes mellitus type 2 Status: Chronic 5. Morbid obesity Patient condition Improving Plan: continue current care, add Mucomyst for sputum clearance. Continue current antibiotics. This inpt stay is expected to cross 2 MNs from start of care Yes Antibiotic Stewardship (2) Current Culture Results Microbiology 02/27 1245 BLOOD: Anaerobic Blood Culture - RECD 02/27 1245 BLOOD: Aerobic Blood Culture - RECD Infxn that will respond? Yes Right drug,dose,and route? Yes More targeted antbx? No How long atbx needed? 7 at 0782
[2017-03-02 00:06] VITALS: BP 122/60
[2017-03-02 04:00] VITALS: BP 141/79
--- NOTE | 2017-03-02 07:55 | ACUTE CARE PROGRESS NOTE (QUA) ---
Progress Notes Subjective Date 03/02/17 Time 0715 Note Patient sitting up in bed. She is tolerating oral intake well. Saturations 93% on RA. Continues to have productive cough. She is ambulating to the bathroom with no dyspnea. Alert and oriented. Loose rhonchi and wheezes throughout all lungs young, air movement improved. Rate and rhythm regular. No LE edema, pulses 2+ Patient/family reports: feeling better Nursing reports: no complaints Objective Findings Last VS-Temp:97.6 B/P:141/79 Pulse:84 Resp:20 SaO2:93 ROOM AIR Last weight lbs:214 oz:1 K.097 Method:Bed Scales Reviewed: medications, vital signs Assessment/Plan Problem List 1. Chronic obstructive lung disease Status: Acute 2. Pneumonia Status: Acute 3. Acute exacerbation of chronic obstructive airways disease Status: Chronic 4. Diabetes mellitus type 2 Status: Chronic 5. Morbid obesity Patient condition Improving, Stable Plan: initiate discharge plan This inpt stay is expected to cross 2 MNs from start of care Yes Comments: Plan to d/c home on zithromax, cefdinir and prednisone. Antibiotic Stewardship (2) Infxn that will respond? Yes Right drug,dose,and route? Yes More targeted antbx? No at 0754
[2017-03-02 08:00] VITALS: BP 130/86
[2017-03-02] MEDS ORDERED: CEFDINIR300 M1 PO (08:37)
[2017-03-02] MEDS ORDERED: ZITHROMAX Z PA250 MG PO (08:41)
[2017-03-02] MEDS ORDERED: PREDNISONE 20MG20 MG PO (08:42)
[2017-03-02] MEDS ORDERED: TESSALON PERLE100 M1 PO (08:43)
--- NOTE | 2017-03-02 08:49 | DISCHARGE SUMMARY STANDARD ---
Demographics Admit date: 02/27/17 Discharge date: 03/02/17 History of present illness History of present illness A 51-year-old white female with moderate COPD and continuing smoking disorder who presented to my office 4 days ago with cough and congestion, found to have rhonchi and crackles on her lung exam with mild tachycardia and was started on p.o. doxycycline with prednisone therapy, to treat her community-acquired bronchopneumonia and COPD exacerbation as an outpatient. Unfortunately, she has not improved and came back to the office today with cough, shortness of air, tachycardia, congestion and was found to have no improvement in her lung exam with tachypnea and increased work of breathing. She is admitted to the hospital for intravenous antibiotic therapy given the failure of outpatient therapy, pulmonary toilet and enhanced respiratory therapy Hospital Course Hospital Course: Patient was admitted to acute care for IV antibiotics. She was treated with Zithromax, Rocephin and Solumedrol. CXR showed no acute pathology. Sputum culture obtained and pending. Significant improvement of dyspnea and saturations. She is tolerating oral intake well and able to ambulate without dyspnea. Discharge home on cefdinir, zithromax and solumedrol. FU in office with myself in 5 days. Discharge diagnoses Problem List 1. Chronic obstructive lung disease Status Acute 2. Pneumonia Status Acute 3. Acute exacerbation of chronic obstructive airways disease Status Chronic 4. Diabetes mellitus type 2 Status Chronic 5. Morbid obesity Medications Medications: Discharge meds are as noted. Follow up Follow up in office in: 5 DAYS with: MELANY ROBLERO APRN at 0849
[2017-03-02 09:32] VITALS: BP 130/86
[2017-03-02 10:00] VITALS: BP 130/86
== END 2017-03-02 10:10 | disposition home or self-care (01) | DRG 190 ==
LOC: 2ND 11:57
PROVIDERS: Internal Medicine Adolescent Medicine
DX: J44.1 Chronic obstructive pulmonary disease with (acute) exacerbation (principal); J18.9 Pneumonia, unspecified organism; Z72.0 Tobacco use; E11.9 Type 2 diabetes mellitus without complications; I10 Essential (primary) hypertension
CPT/HCPCS: J0456